=== PATIENT | male | born 1970 | race Caucasian/White ===

== ENCOUNTER 2024-09-06 00:02 | Emergency (ER) | payer OTHER ==
--- OUTSIDE RECORDS SUMMARY | 2024-09-06 00:07 | XMS REPORT | Continuity of Care Document ---
Author Name Unknown Address [address] [facility] [address]. [address] [place] [address] [facility] Address [address] [facility] [place] [address] Care Team Providers Care Mop Maker Name Role Phone ARNOL SAXENA Primary Care Physician Unavailab Marissa Julien Attending Clinician Unavailable DR ARNOL SAXENA Attending Clinician Unavailabl e [phone] Attending Clinician Unavailable SADA_Fawn Attending Clinician Unavailable DR ARNOL SAXENA Admitting Clinician Unavailabl e MARCELO Admitting Clinician Unavailable Payers Payer Name Policy Type Policy Number Effective Date Expirati on Date Source [facility] Individual Exchange Benefit Plan [id number] [facility] COMMUNITY HEALTH CHOICE [id number] 2016 00:00:00 [employer] HEALTH CHOICE (HMO) [id number] 2022 00:00:00 Problems Condition Name Condition Details Condition Category Status Onset Date Resolution Date Last Treatment Date Treating Clinician Comments Source [id number] Primary hypertensi on Problem [facility] [id number] Elevated glucose Problem [facility] [id number] Primary osteoarthr itis of left knee Problem [facility] [id number] Hx of intrinsic asthma Problem [facility] [id number] Rt inguinal pain Problem [facility] [id number] Moderate mixed hyperlipid emia not requiring statin therapy Problem [facility] [id number] Type 2 diabetes mellitus with hyperglyce pennie, without long-term current use of insulin Problem [facility] Allergies, Adverse Reactions, Alerts Allergy Name Allergy Type Status Severity Reaction(s) Onset Date Inactive Date Treating Clinician Comments Source PROCHLOR PERAZINE DRUG INGREDI Active SOB 2016-11 00:00: 00 [facility] ASPIRIN DRUG INGREDI Active SOB 2016-11 00:00: 00 [facility] 4864 Drug allergy Active anaphylaxis [facility] aspirin aspirin Active hives [facility] ASA (aspirin ) DA Active MODERATE SOB [facility] PROCHLOR PERAZINE MALEATE DA Active SEVERE Anaphylaxis [facility] Social History Social Habit Start Date Stop Date Quantity Comments Source History of Tobacco Use [facility] Sex Assigned At [facility] Smoking Status Start Date Stop Date Source Never Smoker [facility] Medications Ordered Medication Name Filled Medication Name Start Date Stop Date Current Medication? Ordering Clinician Indication Dosage Frequency Signature (SIG) Comments Components Source Pioglitazon e HCl 30 MG Pioglitazon e HCl 30 MG 5-03 00:00: 00 No QD Pioglitazo ne HCl 30 MG Jardiance 25 MG Jardiance 25 MG 4-24 00:00: 00 No 1{table t} QD Jardiance 25 MG Albuterol Sulfate HFA 108 (90 Base) MCG/ACT Albuterol Sulfate HFA 108 (90 Base) MCG/ACT 3-12 00:00: 00 No 1{puff_ as_need ed} 6xD Albuterol Sulfate HFA 108 (90 Base) MCG/ACT Lisinopril 10 MG Lisinopril 10 MG No 1{table t} QD Lisinopril 10 MG Vital Signs Vital Name Observation Time Observation Value Comments S ource height 2024-03-05 11:20:00 70 [in_i] Commo n [facility] weight 2024-03-05 11:20:00 267 [lb_av] Comm on [facility] bmi 2024-03-05 11:20:00 38.31 kg/m2 Comm on [facility] height 2024-01-22 09:00:00 70 [in_i] Commo n [facility] weight 2024-01-22 09:00:00 274.2 [lb_av] Co mmon [facility] temperature 2024-01-22 09:00:00 98.2 [degF] Com mon [facility] bmi 2024-01-22 09:00:00 39.34 kg/m2 Comm on [facility] oximetry 2024-01-22 09:00:00 98 % Commo n [facility] respiratory rate 2024-01-22 09:00:00 16 /min [facility] blood pressure systolic 2024-01-22 09:00:00 156 mm[Hg] [facility] blood pressure diastolic 2024-01-22 09:00:00 88 mm[Hg] [facility] Encounters Start Date/Time End Date/Time Encounter Type Admission Type Attending [facility] Care Facility Care Department Encounter ID Source 2024-02-15 10:25:00 Outpatient JaneMarissa [facility] [id number] [facility] 2024-01-22 08:06:00 Outpatient [facility] [id number] [facility] 2024-01-18 08:19:00 [facility] [id number] [facility] 2023-12-17 13:24:00 [facility] [id number] [facility] 2024-06-07 00:00:00 2024-06-07 00:00:00 (WEB) [facility] [id number] [facility] 2024-03-13 00:00:00 2024-03-13 00:00:00 (TEL) STLMLC ST[facility]C [id number] [facility] 2024-03-12 00:00:00 2024-03-12 00:00:00 (WEB) [facility]LMLC [facility]C [id number] [facility] 2024-03-12 00:00:00 2024-03-12 00:00:00 (WEB) [facility]LMLC [facility]C [id number] [facility] 2024-03-05 00:00:00 2024-03-05 00:00:00 OFFICE VISIT ESTAB PT LEVEL 3 [facility] [id number] [facility] 2024-03-04 00:00:00 2024-03-04 00:00:00 (TEL) [facility]LMLC [facility]C [id number] [facility] 2024-02-15 00:00:00 2024-02-15 00:00:00 (TEL) [facility]C [facility] [id number] [facility] 2024-01-22 00:00:00 2024-01-22 00:00:00 OFFICE VISIT NEW PT LEVEL 4 [facility] [id number] [facility] 2023-10-16 13:07:00 2023-10-16 13:07:00 Outpatient ARNOL JEAN-BAPTISTE [id number] MCKENZIE DEWEY [id number] [facility] 2023-08-03 10:37:00 2023-08-03 10:37:00 Outpatient ARNOL JEAN-BAPTISTE [id number] MCKENZIE DEWEY [id number] [facility] 2021-01-17 19:40:00 2021-01-17 19:40:00 Outpatient R [facility] [id number] [facility] 2021-01-17 19:40:00 2021-01-17 19:40:00 Outpatient R [facility] [id number] [facility] 2020-10-20 00:00:00 2020-10-20 00:00:00 Outpatient SADA _L [facility] [id number] [facility] 2018-08-22 14:30:00 2018-08-22 14:30:00 Outpatient [facility] [id number] [facility]
--- NOTE | 2024-09-06 00:39 | EDPHYS ---
Physician Documentation [facility] Name: Solis Rene Sr Age: 54 yrs Sex: Male : 1970 Arrival Date: 09/06/2024 Time: 00:02 Bed 8 Private MD: ED Physician Sharan Rodriguez HPI: 09/06 05:49 This 54 yrs old Male presents to ER via Ambulatory with complaints of Toothache. rt 05:49 Patient presents to the ED with dental pain. Patient states that he has multiple dental rt cavities, has been present for some time, worsening over the past week. Denies difficulty swallowing, acute complaints, symptoms are moderate in severity, no other aggravating or elevating factors.. Historical: - Allergies: 00:24 Aspirin; ha1 00:24 Compazine; ha1 - PMHx: 00:24 Hypertension; ha1 - PSHx: 00:24 Shoulder - Right; Wrist - Right; ha1 - Immunization history:: Adult Immunizations up to date. - Infectious Disease History:: Denies. - Social history:: Smoking status: Patient denies any tobacco usage or history of. - Family history:: not pertinent. ROS: 05:49 Constitutional: Negative for fever, chills, and weight loss, Cardiovascular: Negative rt for chest pain, palpitations, and edema, Respiratory: Negative for shortness of breath, cough, wheezing, and pleuritic chest pain, Abdomen/GI: Negative for abdominal pain, nausea, vomiting, diarrhea, and constipation, Skin: Negative for injury, rash, and discoloration, Neuro: Negative for headache, weakness, numbness, tingling, and seizure, 05:49 ENT: Positive for Dental pain, negative for difficulty swallowing, Exam: 05:49 Constitutional: This is a well developed, well nourished patient who is awake, alert, rt and in no acute distress. Head/Face: Normocephalic, atraumatic. Chest/axilla: Normal chest wall appearance and motion. Nontender with no deformity. No lesions are appreciated. Cardiovascular: Regular rate and rhythm with a normal S1 and S2. No gallops, murmurs, or rubs. Normal PMI, no JVD. No pulse deficits. Respiratory: Lungs have equal breath sounds bilaterally, clear to auscultation and percussion. No rales, rhonchi or wheezes noted. No increased work of breathing, no retractions or nasal flaring. Abdomen/GI: Soft, non-tender, with normal bowel sounds. No distension or tympany. No guarding or rebound. No evidence of tenderness throughout. 05:49 ENT: Poor dentition, multiple dental caries noted, no drainable abscess. Vital Signs: 00:13 BP 160 / 92; Pulse 60; Resp 17 S; Temp 97.9(T); Pulse Ox 100% on R/A; Weight 121.11 kg; ha1 Height 2 ft. 10 in. ; 00:30 BP 157 / 75; Pulse 57; Resp 16; Pulse Ox 99% on R/A; al5 01:31 BP 144 / 78; Pulse 59; Resp 16; Pulse Ox 97% on R/A; al5 00:13 Body Mass Index 162.39 (121.11 kg, 86.36 cm) ha1 MDM: 00:24 Medical Screening Exam initiated rt 05:53 Differential diagnosis: dental caries. Data reviewed: vital signs, nurses notes. rt 06:26 I considered the following discharge prescriptions or medication management in the rt emergency department Medications were administered in the Emergency Department. See MAR. Test considered but Not performed: CT: No signs of drainable abscess, CT scan not indicated. 06:26 Care significantly affected by the following chronic conditions: Hypertension. rt Counseling: I had a detailed discussion with the patient and/or guardian regarding the historical points, exam findings, and any diagnostic results supporting the discharge/admit diagnosis, the need for outpatient follow up, to return to the emergency department if symptoms worsen or persist or if there are any questions or concerns that arise at home. Administered Medications: 00:57 Drug: Amoxicillin-Clavulanate PO 875 mg PO once Route: PO; al5 01:30 Follow up: Response: No adverse reaction al5 00:58 Drug: Ketorolac IM 30 mg IM once Route: IM; Site: right deltoid; al5 01:30 Follow up: Response: No adverse reaction; Pain is decreased al5 00:59 Not Given (Duplicate Order): mg PO once rt Disposition Summary: 09/06/24 00:39 Discharge Ordered Notes: Location: Home rt Problem: an ongoing problem rt Symptoms: have improved rt Condition: Stable rt Diagnosis - Dental caries, unspecified rt Followup: rt - With: Private Physician - When: 2 - 3 days - Reason: Discharge Instructions: - Discharge Summary Sheet rt - Dental Caries, Adult rt Forms: - Medication Reconciliation Form rt - Antibiotic Education rt - Prescription Opioid Use rt - Patient Portal Instructions rt - Leadership Thank You Letter rt Prescriptions: - Amoxicillin 875 mg Oral Tablet - take 1 tablet ORAL route every 12 hours for 10 days; 20 tablet; Refills: 0, rt Product Selection Permitted Signatures: Luisa Hanna RN RN ha1 Sharan Rodriguez MD MD rt Debi Redding RN RN al5
--- NOTE | 2024-09-06 00:39 | ER ---
Nurse's Notes [facility] Name: Solis Rene Sr Age: 54 yrs Sex: Male : 1970 Arrival Date: 09/06/2024 Time: 00:02 Bed 8 Private MD: Diagnosis: Dental caries, unspecified Presentation: 09/06 00:13 Chief complaint: Patient states: I HAVE A BROKEN TOOTH AND IT HURST REALLY BAD. ha1 00:13 Coronavirus screen: Vaccine status: Patient reports being unvaccinated. Ebola Screen: ha1 No symptoms or risks identified at this time. Initial Sepsis Screen: Does the patient meet any 2 criteria? No. Patient's initial sepsis screen is negative. Does the patient have a suspected source of infection? No. Patient's initial sepsis screen is negative. Risk Assessment: Do you want to hurt yourself or someone else? Patient reports no desire to harm self or others. Onset of symptoms was September 06, 2024. 00:13 Method Of Arrival: Ambulatory ha1 00:13 Acuity: ROMERO 4 ha1 Triage Assessment: 00:13 General: Appears uncomfortable, Behavior is cooperative. Pain: Complains of pain in ha1 TOOTH ACHE. EENT: Reports pain in TOOTH. Neuro: Level of Consciousness is awake, alert, obeys commands, Oriented to person, place, time, situation. Historical: - Allergies: 00:24 Aspirin; ha1 00:24 Compazine; ha1 - PMHx: 00:24 Hypertension; ha1 - PSHx: 00:24 Shoulder - Right; Wrist - Right; ha1 - Immunization history:: Adult Immunizations up to date. - Infectious Disease History:: Denies. - Social history:: Smoking status: Patient denies any tobacco usage or history of. - Family history:: not pertinent. Screenin:[facility] ED Fall Risk Assessment (Adult) History of falling in the last 3 months, al5 including since admission No falls in past 3 months (0 pts) Confusion or Disorientation No (0 pts) Intoxicated or Sedated No (0 pts) Impaired Gait No (0 pts) Mobility Assist Device Used No (0 pt) Altered Elimination No (0 pt) Score/Fall Risk Level 0 - 2 = Low Risk Oriented to surroundings, Maintained a safe environment, Hourly rounding (assess needs \T\ fall precautionary measures) done. Abuse screen: Denies threats or abuse. Denies injuries from another. Nutritional screening: No deficits noted. Tuberculosis screening: No symptoms or risk factors identified. Assessment: 00:37 General: Appears in no apparent distress. uncomfortable, Behavior is calm, cooperative. al5 Pain: Complains of pain in mouth. Neuro: Level of Consciousness is awake, alert, obeys commands, Oriented to person, place, time, situation. Cardiovascular: Capillary refill < 3 seconds Patient's skin is warm and dry. Respiratory: Airway is patent Respiratory effort is even, unlabored, Respiratory pattern is regular, symmetrical. GI: No signs and/or symptoms were reported involving the gastrointestinal system. : No signs and/or symptoms were reported regarding the genitourinary system. EENT: Reports tooth pain. Derm: Skin is intact, is healthy with good turgor, Skin is pink, warm \T\ dry. normal. Musculoskeletal: No signs and/or symptoms reported regarding the musculoskeletal system. 00:57 Reassessment: discharge pending due to shot time. al5 01:31 Reassessment: Patient appears in no apparent distress at this time. Patient and/or al5 family updated on plan of care and expected duration. Pain level reassessed. Patient is alert, oriented x 3, equal unlabored respirations, skin warm/dry/pink. Patient states feeling better. Vital Signs: 00:13 BP 160 / 92; Pulse 60; Resp 17 S; Temp 97.9(T); Pulse Ox 100% on R/A; Weight 121.11 kg; ha1 Height 2 ft. 10 in. ; 00:30 BP 157 / 75; Pulse 57; Resp 16; Pulse Ox 99% on R/A; al5 01:31 BP 144 / 78; Pulse 59; Resp 16; Pulse Ox 97% on R/A; al5 00:13 Body Mass Index 162.39 (121.11 kg, 86.36 cm) ha1 ED Course: 00:11 Patient arrived in ED. gm2 00:14 Sharan Rodriguez MD is Attending Physician. rt 00:24 Triage completed. ha1 00:30 Arm band placed on right wrist. Patient placed in the treatment room, on a stretcher. al5 00:38 Patient has correct armband on for positive identification. Bed in low position. Call al5 light in reach. Side rails up X 1. Provided Education on: medications. 00:38 No provider procedures requiring assistance completed. Patient did not have IV access al5 during this emergency room visit. 00:57 Debi Redding, RN is Primary Nurse. al5 Administered Medications: 00:57 Drug: Amoxicillin-Clavulanate PO 875 mg PO once Route: PO; al5 01:30 Follow up: Response: No adverse reaction al5 00:58 Drug: Ketorolac IM 30 mg IM once Route: IM; Site: right deltoid; al5 01:30 Follow up: Response: No adverse reaction; Pain is decreased al5 00:59 Not Given (Duplicate Order): [id number] mg PO once rt Medication: 00:37 VIS not applicable for this client. al5 Outcome: 00:39 Discharge ordered by . rt 01:31 Discharged to home ambulatory, al5 01:31 Condition: good 01:31 Discharge instructions given to patient, Instructed on discharge instructions, follow up and referral plans. medication usage, Demonstrated understanding of instructions, follow-up care, medications, Prescriptions given X 1, 01:32 Patient left the ED. al5 Signatures: Luisa Hanna RN RN ha1 Sharan Rodriguez MD MD rt Yarelis Sorenson gm2 Debi Redding, KATIE RN al5
[2024-09-06] MEDS ORDERED: AMOX/K CLAV 875 MG TAB ONE (00:51)
[2024-09-06] MEDS ORDERED: KETOROLAC 30 MG/ML INJ ONE (00:51)
[2024-09-06 14:17] VITALS: TEMP 97.9
[2024-09-06 14:20] VITALS: BP 144/78; O2SAT 97
== END 2024-09-06 01:32 | disposition home or self-care (01) ==
LOC: ER 00:02
DX: K02.9 Dental caries, unspecified (principal)
CPT/HCPCS: 96372; 99284

== ENCOUNTER 2025-06-23 17:45 | Emergency (ER) | payer OTHER ==
--- OUTSIDE RECORDS SUMMARY | 2025-06-23 17:49 | XMS REPORT | Continuity of Care Document ---
Author Name Unknown Address [address] [facility] [place] [address] [facility] Address [address] [facility] [address] [place] [address] Care Team Providers Care Analysis Engineer Name Role Phone ARNOL SAXENA Primary Care Physician UnavailMarissa Mccray Attending Clinician Unavailable DR ARNOL SAXENA Attending Clinician Unavailabl e [phone] Attending Clinician Unavailable DR ARNOL SAXENA Admitting Clinician Unavailabl e Payers Payer Name Policy Type Policy Number Effective Date Expirati on Date Source [facility] Individual Exchange Benefit Plan [id number] [facility] COMMUNITY HEALTH CHOICE [id number] 2016 00:00:00 Problems Condition Name Condition Details Condition Category Status Onset Date Resolution Date Last Treatment Date Treating Clinician Comments Source [id number] Primary hypertensi on Problem [facility] [id number] Elevated glucose Problem [facility] [id number] 36038 Primary osteoarthr itis of left knee Problem [facility] [id number] Hx of intrinsic asthma Problem [facility] [id number] 6731224 Rt inguinal pain Problem [facility] [id number] Moderate mixed hyperlipid emia not requiring statin therapy Problem [facility] [id number] Type 2 diabetes mellitus with hyperglyce pennie, without long-term current use of insulin Problem [facility] Allergies, Adverse Reactions, Alerts Allergy Name Allergy Type Status Severity Reaction(s) Onset Date Inactive Date Treating Clinician Comments Source PROCHLOR PERAZINE DRUG INGREDI Active SOB 2016-11 00:00: 00 [facility] ASPIRIN DRUG INGREDI Active SOB 2016-11 00:00: 00 [facility] 4864 Drug allergy Active anaphylaxis [facility] aspirin aspirin Active hives [facility] ASA (aspirin ) DA Active MODERATE SOB [facility] PROCHLOR PERAZINE MALEATE DA Active SEVERE Anaphylaxis [facility] Social History Social Habit Start Date Stop Date Quantity Comments Source History of Tobacco Use [facility] Sex Assigned At [facility] Smoking Status Start Date Stop Date Source Never Smoker [facility] Medications Ordered Medication Name Filled Medication Name [...] Albuterol Sulfate HFA 108 (90 Base) MCG/ACT 2023- 3-12 00:00: 00 No 1{puff_ as_need ed} 6xD Albuterol Sulfate HFA 108 (90 Base) MCG/ACT Lisinopril 10 MG Lisinopril 10 MG No 1{table t} QD Lisinopril 10 MG Vital Signs Vital Name Observation Time Observation Value Comments S felicia height 2024-03-05 11:20:00 70 [in_i] Commo n [facility] weight 2024-03-05 11:20:00 267 [lb_av] Comm on [facility] bmi 2024-03-05 11:20:00 38.31 kg/m2 Comm on [facility] height 2024-01-22 09:00:00 70 [in_i] Commo n [facility] weight 2024-01-22 09:00:00 274.2 [lb_av] Co mmon [facility] temperature 2024-01-22 09:00:00 98.2 [degF] Com mon [facility] bmi 2024-01-22 09:00:00 39.34 kg/m2 Comm on [facility] oximetry 2024-01-22 09:00:00 98 % Commo n [facility] respiratory rate 2024-01-22 09:00:00 16 /min [facility] blood pressure systolic 2024-01-22 09:00:00 156 mm[Hg] [facility] blood pressure diastolic 2024-01-22 09:00:00 88 mm[Hg] [facility] Encounters Start Date/Time End Date/Time Encounter Type Admission Type Attending Clinicians Care Facility Care Department Encounter ID Source 2024-02-15 10:25:00 Outpatient OktibbehaMarissa valadez [facility] [id number] [facility] 2024-01-22 08:06:00 Outpatient JaneMarissa [facility] [id number] [facility] 2024-01-18 08:19:00 Outpatient OktibbehaMarissa valadez [facility] [id number] [facility] 2023-12-17 13:24:00 Outpatient OktibbehaMarissa valadez [facility] [id number] [facility] 2024-06-07 00:00:00 2024-06-07 00:00:00 [facility] [id number] [facility] 2024-03-13 00:00:00 2024-03-13 00:00:00 (TEL) [facility] [id number] [facility] 2024-03-12 00:00:00 2024-03-12 00:00:00 (WEB) [facility]LMLC [facility] [id number] [facility] 2024-03-12 00:00:00 2024-03-12 00:00:00 (WEB) [facility]C [facility] [id number] [facility] 2024-03-05 00:00:00 2024-03-05 00:00:00 OFFICE VISIT ESTAB PT LEVEL 3 [facility] [id number] [facility] 2024-03-04 00:00:00 2024-03-04 00:00:00 (TEL) [facility]C [facility]C [id number] [facility] 2024-02-15 00:00:00 2024-02-15 00:00:00 (TEL) [facility]LMLC [facility]C [id number] [facility] 2024-01-22 00:00:00 2024-01-22 00:00:00 OFFICE VISIT NEW PT LEVEL 4 [facility] [id number] [facility] 2023-10-16 13:07:00 2023-10-16 13:07:00 Outpatient ARNOL JEAN-BAPTISTE [id number] MCKENZIE DEWEY [id number] [facility] 2023-08-03 10:37:00 2023-08-03 10:37:00 Outpatient ARNOL JEAN-BAPTISTE [id number] MCKENZIE DEWEY [id number] [facility] 2021-01-17 19:40:00 2021-01-17 19:40:00 Outpatient R [facility] [id number] [facility] 2021-01-17 19:40:00 2021-01-17 19:40:00 Outpatient R [facility] [id number] [facility] 2018-08-22 14:30:2018-08-22 14:30:00 Outpatient Jihan grimes [facility] [id number] [facility]
[2025-06-23] MEDS ORDERED: LIDOCAINE 1% 20 ML MDV ONE (18:40)
--- NOTE | 2025-06-23 19:13 | ER ---
Nurse's Notes [facility] Name: Solis Rene Sr Age: 55 yrs Sex: Male : 1970 Arrival Date: 06/23/2025 Time: 17:45 Bed 7 Private MD: Diagnosis: Cutaneous abscess of other sites-suprapubic right upper abdomen Presentation: 06/23 18:02 Chief complaint: Abscess on right groin since yesterday x 2 days. Coronavirus screen: hb At this time, the client does not indicate any symptoms associated with coronavirus-19. Ebola Screen: No symptoms or risks identified at this time. Initial Sepsis Screen: Does the patient meet any 2 criteria? No. Patient's initial sepsis screen is negative. Does the patient have a suspected source of infection? No. Patient's initial sepsis screen is negative. Risk Assessment: Do you want to hurt yourself or someone else? Patient reports no desire to harm self or others. Onset of symptoms was June 22, 2025. 18:02 Method Of Arrival: Ambulatory hb 18:02 Acuity: ROMERO 4 hb Triage Assessment: 19:33 Bite description: bite sustained to right femoral area by INSECT, animal information: dd2 vaccination(s) is not applicable. Historical: - Allergies: 18:05 Aspirin; hb 18:05 Compazine; hb - PMHx: 18:05 Hypertension; hb 18:05 DM2; hb - PSHx: 18:05 Shoulder - Right; Wrist - Right; hb - Immunization history:: Adult Immunizations unknown. - Infectious Disease History:: Denies. - Social history:: Smoking status: unknown. Screenin:08 [facility] ED Fall Risk Assessment (Adult) History of falling in the last 3 months, ph including since admission No falls in past 3 months (0 pts) Confusion or Disorientation No (0 pts) Intoxicated or Sedated No (0 pts) Impaired Gait No (0 pts) Mobility Assist Device Used No (0 pt) Altered Elimination No (0 pt) Score/Fall Risk Level 0 - 2 = Low Risk Oriented to surroundings, Maintained a safe environment, Hourly rounding (assess needs \T\ fall precautionary measures) done, Used ambulatory aids as needed (educated on \T\ assisted with). Abuse screen: Denies threats or abuse. Denies injuries from another. Nutritional screening: No deficits noted. Tuberculosis screening: No symptoms or risk factors identified. Assessment: 19:07 General: Appears in no apparent distress. comfortable, Behavior is calm, cooperative. ph Pain: Complains of pain in right femoral area. Neuro: Level of Consciousness is awake, alert, obeys commands, Oriented to person, place, time, situation. Cardiovascular: Capillary refill < 3 seconds in bilateral fingers Patient's skin is warm and dry. Respiratory: Airway is patent Respiratory effort is even, unlabored. Derm: Skin is healthy with good turgor, Skin is pink, warm \T\ dry. Derm: Abscess located on right femoral area is dime sized. Vital Signs: 18:02 BP 143 / 103; Pulse 74; Resp 18; Temp 97.4(TE); Pulse Ox 100% on R/A; Weight 121.11 kg; hb Height 5 ft. 10 in. ; Pain 8/10; 19:17 BP 136 / 92; Pulse 79; Resp 16; Pulse Ox 100% ; dd2 18:02 Body Mass Index 38.31 (121.11 kg, 177.8 cm) hb 18:02 Pain Scale: Adult hb Samson Coma Score: 19:17 Eye Response: spontaneous(4). Motor Response: obeys commands(6). Verbal Response: dd2 oriented(5). Total: 15. ED Course: 17:50 Patient arrived in ED. cj3 17:50 Tyler Richardson, BIOMEDICAL TECHNICIAN-C [facility] hb 17:50 Sabrina Villaseñor MD is Attending Physician. hb 18:05 Triage completed. hb 18:06 Arm band placed on. hb 19:08 Patient has correct armband on for positive identification. Bed in low position. Call light in reach. Side rails up X 1. Door closed. Noise minimized. Warm blanket given. 19:17 Client placed on continuous cardiac and pulse oximetry monitoring. NIBP monitoring dd2 applied. 19:17 No provider procedures requiring assistance completed. Patient did not have IV access dd2 during this emergency room visit. Patient maintains SpO2 saturation greater than 95% on room air. 19:33 Provided Education on: D/C EDUCATION. dd2 Administered Medications: 19:17 Drug: Lidocaine Infiltration (1 %) 20 ml 20 ml Infiltration once; to bedside Volume: 20 dd2 ml; Route: Infiltration; Site: wound; Medication: 19:09 VIS not applicable for this client. ph Outcome: 19:13 Discharge ordered by . russ 19:33 Discharged to home ambulatory, dd2 19:33 Condition: stable 19:33 Discharge instructions given to patient, Instructed on discharge instructions, follow up and referral plans. medication usage, Demonstrated understanding of instructions, follow-up care, medications, Prescriptions given X 2, 19:34 Patient left the ED. dd2 Signatures: Lauren Ruiz RN RN Phoebe Leiva RN RN hb DAVIS, DIANA, RN RN dd2 Tyler Richardson, BIOMEDICAL TECHNICIAN-C BIOMEDICAL TECHNICIAN-Cdr5 MariaE sther Foster cj3 Corrections: (The following items were deleted from the chart) 18:06 18:05 PMHx: DM2 (Wrist - Right); hb hb 18:11 18:02 Chief complaint: Painful lump on right groin since yesterday x 2 days hb hb
--- NOTE | 2025-06-23 19:13 | EDPHYS ---
Physician Documentation [facility] Name: Solis Rene Sr Age: 55 yrs Sex: Male : 1970 Arrival Date: 06/23/2025 Time: 17:45 Bed 7 Private MD: ED Physician Sabrina Villaseñor HPI: 06/23 18:36 This 55 yrs old Unknown Male presents to ER via Ambulatory with complaints of Insect dr5 Bite. 18:36 Onset: The symptoms/episode began/occurred 1 hour(s) ago. Patient is a 55-year-old male dr5 with history of hypertension and diabetes coming in with boil/abscess to right upper groin has been going on for the past day. Patient denies purulent drainage or drainage at all. Patient reports surrounding redness and cellulitis that is worsening. Patient reports that he is diabetic but no longer takes medications due to being under control.. Historical: - Allergies: 18:05 Aspirin; hb 18:05 Compazine; hb - PMHx: 18:05 Hypertension; hb 18:05 DM2; hb - PSHx: 18:05 Shoulder - Right; Wrist - Right; hb - Immunization history:: Adult Immunizations unknown. - Infectious Disease History:: Denies. - Social history:: Smoking status: unknown. ROS: 18:36 Constitutional: as per hpi dr5 Exam: 18:36 Constitutional: This is a well developed, well nourished patient who is awake, alert, dr5 and in no acute distress. Head/Face: Normocephalic, atraumatic. Eyes: Pupils equal round and reactive to light, extra-ocular motions intact. Lids and lashes normal. Conjunctiva and sclera are non-icteric and not injected. Cornea within normal limits. Periorbital areas with no swelling, redness, or edema. Neck: Trachea midline, no thyromegaly or masses palpated, and no cervical lymphadenopathy. Supple, full range of motion without nuchal rigidity, or vertebral point tenderness. No Meningismus. Chest/axilla: Normal chest wall appearance and motion. Nontender with no deformity. No lesions are appreciated. Cardiovascular: Regular rate and rhythm with a normal S1 and S2. Normal PMI, no JVD. No pulse deficits. Respiratory: Lungs have equal breath sounds bilaterally, clear to auscultation. No rales, rhonchi or wheezes noted. No increased work of breathing, no retractions or nasal flaring. Back: No spinal tenderness. No costovertebral tenderness. Full range of motion. Skin: Warm, dry with normal turgor. Patient has redness and swelling to right upper suprapubic area with fluctuance and surrounding cellulitis. Mild tenderness to palpation. MS/ Extremity: Pulses equal, no cyanosis. Neurovascular intact. Full, normal range of motion. Neuro: Awake and alert, GCS 15, oriented to person, place, time, and situation. Cranial nerves II-XII grossly intact. Motor strength 5/5 in all extremities. Sensory grossly intact. Cerebellar exam normal. Normal gait. Vital Signs: 18:02 BP 143 / 103; Pulse 74; Resp 18; Temp 97.4(TE); Pulse Ox 100% on R/A; Weight 121.11 kg; hb Height 5 ft. 10 in. ; Pain 8/10; 19:17 BP 136 / 92; Pulse 79; Resp 16; Pulse Ox 100% ; dd2 18:02 Body Mass Index 38.31 (121.11 kg, 177.8 cm) hb 18:02 Pain Scale: Adult hb Samson Coma Score: 19:17 Eye Response: spontaneous(4). Motor Response: obeys commands(6). Verbal Response: dd2 oriented(5). Total: 15. Procedures: 23:07 I \T\ D: Incision and drainage was performed for an abscess of the right right femoral dr5 area Prepped with alcohol, Anesthetized with 2.5 ml's 1% Lidocaine. Incised with #11 blade. Drained moderate amount purulent fluid. serosanguinous fluid. Loculations removed. Abscess cavity explored. Dressing: the patient tolerated the procedure well. MDM: 17:59 Medical Screening Exam initiated dr5 23:07 Differential diagnosis: abrasion, contusion, Abscess, folliculitis. Data reviewed: dr5 vital signs, nurses notes. Consideration of Admission/Observation Escalation of care including admission/observation considered. Admission considered if patient found to have abscess with tracking as well as fever. I considered the following discharge prescriptions or medication management in the emergency department I discussed and recommended Over The Counter medications, Medications were administered in the Emergency Department. See MAR. Care significantly affected by the following chronic conditions: Diabetes, Hypertension. Care significantly affected by the following Social Determinants of Health: Poor access to healthcare and/or lack of insurance, Poor access to transportation, Problems related to employment. Counseling: I had a detailed discussion with the patient and/or guardian regarding the historical points, exam findings, and any diagnostic results supporting the discharge/admit diagnosis, the presence of at least one elevated blood pressure reading (>120/80) during this emergency department visit, the need for outpatient follow up, for definitive care, a family practitioner, to return to the emergency department if symptoms worsen or persist or if there are any questions or concerns that arise at home. Medication response: Lidocaine. Response to treatment: the patient's symptoms have markedly improved after treatment. Special discussion: I have referred the patient to see his PCP for further evaluation of high blood pressure. I discussed with the patient/guardian in detail that at this point there is no indication for admission to the hospital. It is understood, however, that if the symptoms persist or worsen the patient needs to return immediately for re-evaluation. Based on the history and exam findings, there is no indication for further emergent testing or inpatient evaluation. I discussed with the patient/guardian the need to see the primary care provider for further evaluation of the symptoms. ED course: Incision and drainage was completed with purulent drainage and relief of symptoms. Will place patient on antibiotics due to patient being diabetic. Recommended patient keep area clean and follow-up with primary care doctor. All questions answered. Strict ER precautions given.. 06/23 18:13 Order name: Incision \T\ Drainage Setup; Complete Time: 18:39 dr5 Administered Medications: 19:17 Drug: Lidocaine Infiltration (1 %) 20 ml 20 ml Infiltration once; to bedside Volume: 20 dd2 ml; Route: Infiltration; Site: wound; Disposition Summary: 06/23/25 19:13 Discharge Ordered Notes: Location: Home dr5 Condition: Stable dr5 Diagnosis - Cutaneous abscess of other sites - suprapubic right upper abdomen dr5 Followup: dr5 - With: Emergency Department - When: As needed - Reason: Worsening of condition Followup: dr5 - With: Private Physician - When: 1 - 2 days - Reason: Recheck today's complaints, Continuance of care, Re-evaluation by your physician Discharge Instructions: - Discharge Summary Sheet dr5 - Skin Abscess dr5 - Incision and Drainage, Care After dr5 Forms: - Medication Reconciliation Form dr5 - Antibiotic Education dr5 - Patient Portal Instructions dr5 - Leadership Thank You Letter dr5 Prescriptions: - Cephalexin 500 mg Oral Capsule - take 1 capsule ORAL route every 12 hours for 10 days; 20 capsule; Refills: 0, dr5 Product Selection Permitted - Bactrim DS 800-160 mg Oral Tablet - take 1 tablet ORAL route every 12 hours for 10 days; 20 tablet; Refills: 0, dr5 Product Selection Permitted Signatures: Lauren Ruiz RN RN Phoebe Leiva RN RN hb DAVIS, DIANA, RN RN dd2 Tyler Richardson, ELLEN-C RESEARCH LAB ASSISTANT-[facility] Corrections: (The following items were deleted from the chart) 18:06 18:05 PMHx: DM2 (Wrist - Right); hb hb
[2025-06-23 20:11] VITALS: TEMP 97.4; O2SAT 100
[2025-06-23 20:16] VITALS: BP 136/92
== END 2025-06-23 19:34 | disposition home or self-care (01) ==
LOC: ER 17:45
PROC: 0J980ZZ Drainage of Abdomen Subcutaneous Tissue and Fascia, Open Approach (ICD-10-PCS; principal; 2025-06-23)
DX: L02.818 Cutaneous abscess of other sites (principal); E11.9 Type 2 diabetes mellitus without complications; I10 Essential (primary) hypertension; Z88.8 Allergy status to other drugs, medicaments and biological substances
CPT/HCPCS: 99283; J2003

== ENCOUNTER 2025-08-19 16:45 | Emergency (ER) | payer OTHER ==
--- OUTSIDE RECORDS SUMMARY | 2025-08-19 16:49 | XMS REPORT | Continuity of Care Document ---
Author Name Unknown Address [address] [facility] [place] [address] Organization [facility] Address [address] [facility] [address] [place] [address] Care Team Providers Care Case Assembler Name Role Phone Marissa Lara Attending Clinician Unavailable Payers Payer Name Policy Type Policy Number Effective Date Expirati on Date Source [facility] Individual Exchange Benefit Plan 53 [id number] [facility] [employer] [id number] 2016 00:00:00 Problems Condition Name Condition Details Condition Category Status Onset Date Resolution Date Last Treatment Date Treating Clinician Comments Source [id number] Primary hypertensi on Problem [facility] [id number] Elevated glucose Problem [facility] [id number] Primary osteoarthr itis of left knee Problem [facility] [id number] Hx of intrinsic asthma Problem [facility] [id number] Rt inguinal pain Problem [facility] [id number] Moderate mixed hyperlipid emia not requiring statin therapy Problem [facility] [id number] Type 2 diabetes mellitus with hyperglyce pennie, without long-term current use of insulin Problem [facility] Allergies, Adverse Reactions, Alerts Allergy Name Allergy Type Status Severity Reaction(s) Onset Date Inactive Date Treating Clinician Comments Source [facility]LENA [facility]ORSEY [facility] INGREDI Active SOB 2016-11 00:00: 00 [facility] ASPIRIN DRUG INGREDI Active SOB 2016-11 00:00: 00 [facility] 4864 Drug allergy Active anaphylaxis Common [facility] aspirin aspirin Active hives [facility] Social History Social Habit Start Date Stop Date Quantity Comments Source History of Tobacco Use [facility] Sex Assigned At [facility] Smoking Status Start Date Stop Date Source Never Smoker [facility] Medications Ordered Medication Name Filled Medication Name Start Date Stop Date Current Medication? Ordering Clinician Indication Dosage Frequency Signature (SIG) Comments Components Source Pioglitazon e HCl 30 MG Pioglitazon e HCl 30 MG 03-14 00:00: 00 No QD Pioglitazo ne HCl 30 MG Jardiance 25 MG Jardiance 25 MG 03-05 00:00: 00 No 1{table t} QD Jardiance 25 MG Albuterol Sulfate HFA 108 (90 Base) MCG/ACT Albuterol Sulfate HFA 108 (90 Base) MCG/ACT 12 00:00: 00 No 1{puff_ as_need ed} 6xD Albuterol Sulfate HFA 108 (90 Base) MCG/ACT Lisinopril 10 MG Lisinopril 10 MG No 1{table t} QD Lisinopril 10 MG Vital Signs Vital Name Observation Time Observation Value Comments S ource height 2024-03-05 11:20:00 70 [in_i] Commo n [facility] weight 2024-03-05 11:20:00 267 [lb_av] Comm on [facility] bmi 2024-03-05 11:20:00 38.31 kg/m2 Comm on [facility] height 2024-01-22 09:00:00 70 [in_i] Commo n [facility] weight 2024-01-22 09:00:00 274.2 [lb_av] Co mmon [facility] temperature 2024-01-22 09:00:00 98.2 [degF] Com mon [facility] bmi 2024-01-22 09:00:00 39.34 kg/m2 Comm on [facility] oximetry 2024-01-22 09:00:00 98 % Commo n [facility] respiratory rate 2024-01-22 09:00:00 16 /min [facility] blood pressure systolic 2024-01-22 09:00:00 156 mm[Hg] [facility] blood pressure diastolic 2024-01-22 09:00:00 88 mm[Hg] [facility] Encounters Start Date/Time End Date/Time Encounter Type Admission Type Attending Clinicians Care Facility Care Department Encounter ID Source 2024-02-15 10:25:00 Outpatient Marissa Lara [facility] [id number] [facility] 2024-01-22 08:06:00 Outpatient HinesMarissa valadez [facility] [id number] [facility] 2024-01-18 08:19:00 Outpatient Marissa Lara [facility] [id number] [facility] 2023-12-17 13:24:00 Outpatient Marissa Lara [facility] [id number] [facility] 2024-06-07 00:00:00 2024-06-07 00:00:00 (WEB) [facility] [id number] [facility] 2024-03-13 00:00:00 2024-03-13 00:00:00 (TEL) [facility] [id number] [facility] 2024-03-12 00:00:00 2024-03-12 00:00:00 (WEB) [facility] [id number] [facility] 2024-03-12 00:00:00 2024-03-12 00:00:00 (WEB) [facility] [id number] [facility] 2024-03-05 00:00:00 2024-03-05 00:00:00 OFFICE VISIT ESTAB PT LEVEL 3 [facility] [id number] [facility] 2024-03-04 00:00:00 2024-03-04 00:00:00 (TEL) [facility] [id number] [facility] 2024-02-15 00:00:00 2024-02-15 00:00:00 (TEL) [facility] [id number] [facility] 2024-01-22 00:00:00 2024-01-22 00:00:00 OFFICE VISIT NEW PT LEVEL 4 [facility] [id number] [facility] 2021-01-17 19:40:00 2021-01-17 19:40:00 Outpatient R [facility] [id number] [facility] 2021-01-17 19:40:00 2021-01-17 19:40:00 Outpatient R [facility] [id number] [facility] 2018-08-22 14:30:00 2018-08-22 14:30:00 Outpatient [facility] [id number] [facility]
--- NOTE | 2025-08-19 18:36 | RAD REPORT ---
EXAM: Foot Right 3 View HISTORY: PAIN COMPARISON: None FINDINGS: Bones: No acute fracture identified. Alignment:No significant malalignment. Degenerative changes:Small plantar aspect calcaneal spur. Other: n/a IMPRESSION: No acute osseous abnormality.
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
[2025-08-19] MEDS ORDERED: ACETAMINOPHEN 500 MG TAB ONE (20:39)
[2025-08-19] MEDS ORDERED: AMOX/K CLAV 875 MG TAB ONE (20:39)
[2025-08-19 21:47] VITALS: TEMP 98.3
[2025-08-19 21:48] VITALS: BP 147/81; O2SAT 98
== END 2025-08-19 20:51 | disposition home or self-care (01) ==
LOC: ER 16:45
DX: M79.671 Pain in right foot (principal); K08.89 Other specified disorders of teeth and supporting structures
CPT/HCPCS: 99283